=== PATIENT | male | born 1970 | race African-American/Black ===

== ENCOUNTER 2023-03-05 18:50 | Emergency (ER) | payer BC ==
[~2023-03-05] VITALS: Ht 182.8 cm; Wt 115.7 kg
== END 2023-03-05 22:58 | disposition left against medical advice (07) ==
LOC: ED 18:50
DX: R20.2 Paresthesia of skin (principal); R35.0 Frequency of micturition; Z53.21 Procedure and treatment not carried out due to patient leaving prior to being seen by health care provider